=== PATIENT | female | born 1995 | race Caucasian/White ===

== ENCOUNTER 2017-11-18 16:20 | Emergency (ER) | payer MEDICAID ==
[~2017-11-18] VITALS: Ht 167.6 cm; Wt 91.0 kg
[~2017-11-18 16:20] MED LIST: ALBUTEROL; SINGULAIR
[2017-11-18] MEDS ORDERED: DIPHENHYDRAMINE 25MG CAPSULE PO ONE (19:45)
[2017-11-18 20:06] VITALS: BP 132/75
== END 2017-11-19 01:51 | disposition home or self-care (01) ==
LOC: ER 22:42
DX: T78.49XA Other allergy, initial encounter (principal); J45.909 Unspecified asthma, uncomplicated; W57.XXXA Bitten or stung by nonvenomous insect and other nonvenomous arthropods, initial encounter
CPT/HCPCS: 99282; Q0163